=== PATIENT | male | born 1955 | race American Indian/Alaskan Native ===

== ENCOUNTER 2025-01-04 18:24 | Observation (INO) | payer OTHER ==
[2025-01-04] MEDS ORDERED: ACETAMINOPHEN INJECTION 100 ML ONE (20:07)
[2025-01-04] MEDS ORDERED: FAMOTIDINE 20 MG/50 ML IVPB 20 MG/50 ML MG IVPB ONE (20:07)
[2025-01-04] MEDS: SODIUM CHLORIDE 0.9% 500 ML INFUS.BAG IV ONE (20:30)
[2025-01-04] MEDS: ACETAMINOPHEN 1000 MG/100 ML BAG IVPB ONE (20:30)
[2025-01-04] MEDS: FAMOTIDINE 20 MG/50 ML IVPB 20 MG/50 ML MG IVPB ONE (20:47)
[2025-01-04 20:48] LABS: BASO % 0.3 % (0-2.0); EOS % 0.2 % (0-4.5); HEMATOCRIT 43.5 % (35.4-49); HEMOGLOBIN 14.7 GM/dL (11.7-16.9); LYMPH % 15.4 % (8-40); MCHC 33.9 g/dl (32.0-35.9); MEAN CELL VOLUME 94.3 fl (80-96); MEAN PLT VOLUME 8.1 fl (7.5-11.1); MONO % 5.4 % (3.8-10.2); NEUT % 78.7 % (42.8-82.8); PLATELET COUNT 227 10^3/uL (134-434); RBC 4.61 M/mm3 (4.00-5.60); WHITE BLOOD COUNT 5.5 K/mm3 (4.0-10.0)
[2025-01-04 20:54] LABS: INR 0.91 (0.83-1.09); PROTHROMBIN TIME (PATIENT) 9.9 SEC (9.7-13.0)
[2025-01-04 20:56] LABS: ACTIVATED PTT 33.9 SECONDS (25.2-36.5)
[2025-01-04 21:06] LABS: POTASSIUM 3.9 mmol/L (3.5-5.1)
[2025-01-04 21:08] LABS: ALBUMIN 4.2 g/dl (3.4-5.0); CALCIUM 9.5 mg/dL (8.5-10.1); MAGNESIUM 2.2 mg/dL (1.8-2.4)
[2025-01-04 21:09] LABS: BLOOD UREA NITROGEN 16.4 mg/dL (7-18)
[2025-01-04 21:11] LABS: CREATININE 0.8 mg/dL (0.55-1.3)
[2025-01-04 21:13] LABS: BILIRUBIN,TOTAL 0.7 mg/dL (0.2-1)
[2025-01-04] MEDS ORDERED: MORPHINE SULFATE 2 MG/ML SYRINGE ONE (23:18)
[2025-01-04] MEDS: morphine CARPU-JECT 2 MG/1 ML DISP.SYRIN IVPUSH ONE (23:28)
[2025-01-04] MEDS ORDERED: PIPERACILLIN/TAZOB 3.375 GM 3.375 GM/50 ML BAG IVPB ONE (23:59)
[2025-01-05] MEDS: PIPERACILLIN/TAZOB 3.375 GM 3.375 GM in DEXTROSE 5%-WATER - 50 ML IVPB ONE (00:09)
[2025-01-05] MEDS: SODIUM CHLORIDE 0.9% 500 ML INFUS.BAG IV ONE (00:09)
[2025-01-05] MEDS ORDERED: ACETAMINOPHEN 325 MG TABLET (FP) PO PRN (00:30)
[2025-01-05] MEDS ORDERED: MORPHINE SULFATE 2 MG/ML SYRINGE IVPUSH PRN (00:30)
[2025-01-05] MEDS: SODIUM CHLORIDE 1,000 ML IV SCH (01:40)
[2025-01-05] MEDS: ACETAMINOPHEN 325 MG TABLET (FP) PO PRN (01:47)
[2025-01-05 04:20] VITALS: BMI 24.0
[2025-01-05] MEDS ORDERED: PIPERACILLIN/TAZOB 3.375 GM 3.375 GM in DEXTROSE 5%-WATER - 50 ML IVPB SCH (06:00)
[2025-01-05] MEDS: PIPERACILLIN/TAZOB 3.375 GM 50 ML IVPB SCH (08:53)
[2025-01-05 09:12] LABS: BASO % 0.2 % (0-2.0); EOS % 0.5 % (0-4.5); HEMATOCRIT 38.3 % (35.4-49); HEMOGLOBIN 12.8 GM/dL (11.7-16.9); LYMPH % 15.6 % (8-40); MCH 31.7 pg (25.7-33.7); MCHC 33.4 g/dl (32.0-35.9); MEAN CELL VOLUME 94.8 fl (80-96); MEAN PLT VOLUME 8.4 fl (7.5-11.1); MONO % 9.5 % (3.8-10.2); NEUT % 74.2 % (42.8-82.8); PLATELET COUNT 191 10^3/uL (134-434); RBC 4.04 M/mm3 (4.00-5.60); RDW 13.3 % (11.9-15.9); WHITE BLOOD COUNT 7.2 K/mm3 (4.0-10.0)
[2025-01-05 09:53] LABS: POTASSIUM 3.3 mmol/L (3.5-5.1)
[2025-01-05 10:05] LABS: INR 1.05 (0.83-1.09); PROTHROMBIN TIME (PATIENT) 11.6 SEC (9.7-13.0)
[2025-01-05 10:09] LABS: BLOOD UREA NITROGEN 9.5 mg/dL (7-18); MAGNESIUM 1.8 mg/dL (1.8-2.4)
[2025-01-05 10:10] LABS: PHOSPHOROUS 2.6 mg/dL (2.5-4.9)
[2025-01-05 10:11] LABS: BILIRUBIN,TOTAL 1.2 mg/dL (0.2-1)
[2025-01-05 10:12] LABS: CREATININE 0.7 mg/dL (0.55-1.3)
[2025-01-05 10:15] LABS: CALCIUM 7.7 mg/dL (8.5-10.1)
[2025-01-05] MEDS: amLODIPine BESYLATE 2.5 MG TABLET (FP) PO SCH (10:24)
[2025-01-05] MEDS: OMEGA-3 ACID ETHYL ESTERS (FATTY-ACIDS) 1 GM CAPSULE (FP) PO SCH (10:25)
[2025-01-05] MEDS: CEFTRIAXONE 1 G/50 ML PREMIX 50 ML IVPB SCH (12:49)
[2025-01-05 13:20] LABS: BILIRUBIN,DIRECT 0.3 mg/dL (0.0-0.2)
[2025-01-05] MEDS: SODIUM CHLORIDE 0.9%/KCL 20 MEQ/1,000 ML INFUS.BAG IV SCH (14:16)
[2025-01-05] MEDS: ATORVASTATIN CA 10 MG TABLET (FP) PO SCH (21:06)
[2025-01-06 09:28] LABS: ABSOLUTE IMMATURE GRANULOCYTES 0.02 x10^3/uL (0.0-0.031); BASOPHILS # 0.02 x10^3/uL (0.01-0.08); EOSINOPHIL % 0.7 % (0.8-7.0); EOSINOPHILS # 0.05 x10^3/uL (0.04-0.54); HEMATOCRIT 35.8 % (40.1-51.0); HEMOGLOBIN 12.3 g/dL (13.7-17.5); MCHC 34.4 g/dl (32.3-36.5); MEAN CELL VOLUME 93.2 fl (79.0-92.2); MEAN PLT VOLUME 10.2 fl (9.4-12.4); MONOCYTE # 0.77 x10^3/uL (0.30-0.82); PLATELET COUNT 188 x10^3/uL (163-337); RDW 12.7 % (12.2-16.4)
[2025-01-06 09:44] LABS: POTASSIUM 3.8 mmol/L (3.5-5.1)
[2025-01-06 09:49] LABS: CALCIUM 7.8 mg/dL (8.5-10.1)
[2025-01-06 09:50] LABS: ALBUMIN 2.8 g/dl (3.4-5.0); BLOOD UREA NITROGEN 9.3 mg/dL (7-18)
[2025-01-06 09:51] LABS: MAGNESIUM 1.9 mg/dL (1.8-2.4)
[2025-01-06 09:53] LABS: CREATININE 0.7 mg/dL (0.55-1.3)
[2025-01-06 09:54] LABS: BILIRUBIN,TOTAL 1.3 mg/dL (0.2-1)
[2025-01-06 09:55] LABS: TOT PROT 5.8 g/dl (6.4-8.2)
[2025-01-06] MEDS: POTASSIUM PHOSPHATE 20 MM in DEXTROSE 5%-WATER - 500 ML IVPB SCH ×2 (12:36→21:28)
[2025-01-06] MEDS ORDERED: ROCURONIUM BROMIDE 50 MG/5 ML SYRINGE ONE (13:43)
[2025-01-06] MEDS ORDERED: MIDAZOLAM HCL 2 MG/2 ML SINGLE DOSE VIAL ONE (13:43)
[2025-01-06] MEDS ORDERED: PROPOFOL 20 ML ONE ×2 (13:43→14:16)
[2025-01-06] MEDS ORDERED: BUPIVACAINE HCL/PF 0.25% (2.5MG/ML) 10 ML VIAL ONE (13:58)
[2025-01-06] MEDS ORDERED: ROCURONIUM BROMIDE 50 MG/5 ML VIAL ONE (14:16)
[2025-01-06] MEDS ORDERED: ONDANSETRON 4 MG/2 ML VIAL IVPUSH PRN (14:22)
[2025-01-06] MEDS: cefOXitin SODIUM 1 GM VIAL (RESTRICTED TO ID) IVPB ONE (14:58)
[2025-01-06] MEDS: BUPIVACAINE HCL/PF 0.25% (2.5MG/ML) 10 ML VIAL IJ ONE ×2 (15:37)
[2025-01-06] MEDS ORDERED: NEOSTIGMINE METHYLSULFATE 0.5 MG/1 ML - 10 ML MDV ONE (15:58)
[2025-01-06] MEDS ORDERED: SUGAMMADEX SODIUM 200 MG/2 ML VIAL ONE ×2 (16:26→16:27)
[2025-01-06] MEDS ORDERED: oxyCODONE HCL 5 MG TABLET PO PRN (17:27)
[2025-01-06] MEDS ORDERED: ACETAMINOPHEN 325 MG TABLET (FP) PO PRN (17:27)
[2025-01-06] MEDS: LACTATED RINGERS SOLUTION 1,000 ML IV SCH (18:06)
[2025-01-06] MEDS: OMEGA-3 ACID ETHYL ESTERS (FATTY-ACIDS) 1 GM CAPSULE (FP) PO SCH (21:11)
[2025-01-06] MEDS: ATORVASTATIN CA 10 MG TABLET (FP) PO SCH (21:11)
[2025-01-07] MEDS: ACETAMINOPHEN 325 MG TABLET (FP) PO PRN (05:31)
[2025-01-07] MEDS: amLODIPine BESYLATE 2.5 MG TABLET (FP) PO SCH (09:08)
[2025-01-07 09:50] LABS: ABSOLUTE IMMATURE GRANULOCYTES 0.02 x10^3/uL (0.0-0.031); BASOPHILS # 0.02 x10^3/uL (0.01-0.08); EOSINOPHIL % 0.7 % (0.8-7.0); EOSINOPHILS # 0.05 x10^3/uL (0.04-0.54); HEMOGLOBIN 11.4 g/dL (13.7-17.5); MCHC 34.5 g/dl (32.3-36.5); MEAN CELL VOLUME 93.2 fl (79.0-92.2); MEAN PLT VOLUME 10.2 fl (9.4-12.4); MONOCYTE # 0.61 x10^3/uL (0.30-0.82); MONOCYTE % 8.6 % (5.3-12.2); PLATELET COUNT 184 x10^3/uL (163-337); RDW 12.7 % (12.2-16.4)
[2025-01-07 10:12] LABS: POTASSIUM 3.7 mmol/L (3.5-5.1)
[2025-01-07 10:14] LABS: ALBUMIN 2.5 g/dl (3.4-5.0); CALCIUM 7.8 mg/dL (8.5-10.1)
[2025-01-07 10:15] LABS: BLOOD UREA NITROGEN 6.8 mg/dL (7-18)
[2025-01-07 10:18] LABS: CREATININE 0.7 mg/dL (0.55-1.3); PHOSPHOROUS 2.4 mg/dL (2.5-4.9)
[2025-01-07 10:19] LABS: BILIRUBIN,TOTAL 1.1 mg/dL (0.2-1); TOT PROT 5.4 g/dl (6.4-8.2)
[2025-01-07] MEDS: LACTATED RINGERS SOLUTION 1,000 ML IV SCH (10:20)
[2025-01-07] MEDS ORDERED: KETOROLAC TROMETHAMINE 15 MG/ML VIAL IVPUSH PRN (11:43)
[2025-01-07] MEDS: NAPH,MB-DB/K PH,MBDB POWDER PACKET PO ONE (12:27)
[2025-01-07] MEDS: ENOXAPARIN NA (PORCINE) 40 MG/0.4 ML DISP.SYRIN SQ SCH (12:27)
[2025-01-07] MEDS: ACETAMINOPHEN 325 MG TABLET (FP) PO SCH (12:28)
[2025-01-07] MEDS ORDERED: PIPERACILLIN/TAZOB 3.375 GM 3.375 GM in DEXTROSE 5%-WATER - 50 ML IVPB SCH (12:41)
[2025-01-07] MEDS: PIPERACILLIN/TAZOB 3.375 GM 3.375 GM in DEXTROSE 5%-WATER - 50 ML IVPB SCH (16:14)
[2025-01-08] MEDS ORDERED: NAPH,MB-DB/K PH,MBDB POWDER PACKET PO ONE (08:50)
[2025-01-08 10:34] LABS: ABSOLUTE IMMATURE GRANULOCYTES 0.02 x10^3/uL (0.0-0.031); BASOPHILS # 0.03 x10^3/uL (0.01-0.08); EOSINOPHIL % 2.8 % (0.8-7.0); EOSINOPHILS # 0.19 x10^3/uL (0.04-0.54); HEMATOCRIT 32.1 % (40.1-51.0); MCHC 34.3 g/dl (32.3-36.5); MEAN CELL VOLUME 94.1 fl (79.0-92.2); MEAN PLT VOLUME 10.3 fl (9.4-12.4); MONOCYTE % 10.4 % (5.3-12.2); PLATELET COUNT 178 x10^3/uL (163-337); RDW 12.7 % (12.2-16.4)
[2025-01-08 11:04] LABS: POTASSIUM 3.6 mmol/L (3.5-5.1)
[2025-01-08 11:05] LABS: CALCIUM 7.9 mg/dL (8.5-10.1)
[2025-01-08 11:06] LABS: ALBUMIN 2.4 g/dl (3.4-5.0); BLOOD UREA NITROGEN 7.4 mg/dL (7-18); MAGNESIUM 1.8 mg/dL (1.8-2.4)
[2025-01-08 11:09] LABS: CREATININE 0.7 mg/dL (0.55-1.3); PHOSPHOROUS 2.4 mg/dL (2.5-4.9)
[2025-01-08 11:11] LABS: BILIRUBIN,TOTAL 0.9 mg/dL (0.2-1); TOT PROT 5.4 g/dl (6.4-8.2)
[2025-01-08] MEDS: SIMETHICONE 80 MG TAB.CHEW (FP) PO PRN (11:59)
[2025-01-08] MEDS: DOCUSATE SODIUM 100 MG CAPSULE (FP) PO ONE (18:08)
[2025-01-08] MEDS: SENNOSIDES 8.8 MG/5 ML SYRUP PO SCH (21:47)
[2025-01-08 23:01] VITALS: RESP 18
[2025-01-09] MEDS: oxyCODONE HCL 5 MG TABLET PO PRN (08:50)
[2025-01-09 10:10] LABS: ABSOLUTE IMMATURE GRANULOCYTES 0.01 x10^3/uL (0.0-0.031); BASOPHILS # 0.02 x10^3/uL (0.01-0.08); EOSINOPHIL % 3.2 % (0.8-7.0); EOSINOPHILS # 0.19 x10^3/uL (0.04-0.54); HEMATOCRIT 34.8 % (40.1-51.0); HEMOGLOBIN 11.6 g/dL (13.7-17.5); MCHC 33.3 g/dl (32.3-36.5); MEAN CELL VOLUME 93.3 fl (79.0-92.2); MEAN PLT VOLUME 10.2 fl (9.4-12.4); MONOCYTE # 0.61 x10^3/uL (0.30-0.82); MONOCYTE % 10.2 % (5.3-12.2); PLATELET COUNT 219 x10^3/uL (163-337); RDW 12.4 % (12.2-16.4)
[2025-01-09 10:43] LABS: POTASSIUM 3.7 mmol/L (3.5-5.1)
[2025-01-09 11:03] LABS: CALCIUM 8.3 mg/dL (8.5-10.1)
[2025-01-09 11:04] LABS: ALBUMIN 2.6 g/dl (3.4-5.0); BLOOD UREA NITROGEN 7.2 mg/dL (7-18); MAGNESIUM 1.9 mg/dL (1.8-2.4)
[2025-01-09 11:07] LABS: CREATININE 0.7 mg/dL (0.55-1.3); PHOSPHOROUS 2.6 mg/dL (2.5-4.9)
[2025-01-09 11:09] LABS: TOT PROT 6.1 g/dl (6.4-8.2)
[2025-01-10 09:05] VITALS: BP 144/87; PULSE 96; TEMP 97.7
[2025-01-10 09:42] LABS: POTASSIUM 3.6 mmol/L (3.5-5.1)
[2025-01-10 09:46] LABS: ABSOLUTE IMMATURE GRANULOCYTES 0.01 x10^3/uL (0.0-0.031); BASOPHILS # 0.02 x10^3/uL (0.01-0.08); EOSINOPHIL % 4.1 % (0.8-7.0); EOSINOPHILS # 0.18 x10^3/uL (0.04-0.54); HEMATOCRIT 34.6 % (40.1-51.0); HEMOGLOBIN 11.6 g/dL (13.7-17.5); MCHC 33.5 g/dl (32.3-36.5); MEAN CELL VOLUME 93.5 fl (79.0-92.2); MEAN PLT VOLUME 9.9 fl (9.4-12.4); MONOCYTE # 0.49 x10^3/uL (0.30-0.82); MONOCYTE % 11.2 % (5.3-12.2); PLATELET COUNT 229 x10^3/uL (163-337); RDW 12.4 % (12.2-16.4)
[2025-01-10 10:18] LABS: CALCIUM 8.6 mg/dL (8.5-10.1)
[2025-01-10 10:19] LABS: ALBUMIN 2.6 g/dl (3.4-5.0); BLOOD UREA NITROGEN 4.7 mg/dL (7-18)
[2025-01-10 10:21] LABS: BILIRUBIN,TOTAL 0.7 mg/dL (0.2-1)
[2025-01-10 10:22] LABS: CREATININE 0.8 mg/dL (0.55-1.3)
== END 2025-01-10 19:12 | disposition home or self-care (01) ==
LOC: JER 18:24 → JERBED 23:46 → INTOOBSV 23:46 → UNDOADMOB 23:46 → J6S 01-05 01:43 → JERBED 01-05 01:43 → J6S 01-05 13:47 → JERBED 01-05 13:47
PROVIDERS: ADMIT Internal Medicine; ATTEND Student in an Organized Health Care Education/Training Program
PROC: 3E033NZ Introduction of Analgesics, Hypnotics, Sedatives into Peripheral Vein, Percutaneous Approach (ICD-10-PCS; 2025-01-05)
PROC: 3E03329 Introduction of Other Anti-infective into Peripheral Vein, Percutaneous Approach (ICD-10-PCS; 2025-01-05)
PROC: 3E033GC Introduction of Other Therapeutic Substance into Peripheral Vein, Percutaneous Approach (ICD-10-PCS; 2025-01-05)
PROC: 3E023GC Introduction of Other Therapeutic Substance into Muscle, Percutaneous Approach (ICD-10-PCS; 2025-01-05)
PROC: 3E0337Z Introduction of Electrolytic and Water Balance Substance into Peripheral Vein, Percutaneous Approach (ICD-10-PCS; 2025-01-05)
PROC: 0FT44ZZ Resection of Gallbladder, Percutaneous Endoscopic Approach (ICD-10-PCS; principal; 2025-01-06 14:30)
DX: K80.00 Calculus of gallbladder with acute cholecystitis without obstruction (principal); I10 Essential (primary) hypertension; E78.5 Hyperlipidemia, unspecified; H40.9 Unspecified glaucoma; Z87.820 Personal history of traumatic brain injury
CPT/HCPCS: 0241U-QW; 36415; 71045-TC-FY; 71275-TC; 74019-TC-FY; 74174-TC; 76705-TC; 80053; 82248; 83605; 83690; 83735; 84100; 84484; 85025; 85610; 85730; 86850; 86900; 86901; 88304-TC; 93005; 93010; 94010; 94760; 96361; 96365; 96366; 96367; 96372; 96374; 96375; 96376; 97116-GP; 97162-GP; 99285-25; G0378; J0131; Q9967